=== PATIENT | male | born 1970 ===

== ENCOUNTER 2017-04-11 18:40 | Emergency (ER) | payer MEDICAID ==
[2017-04-11 19:00] VITALS: BMI 28.2
[2017-04-11 19:08] VITALS: BP 134/88; TEMP 98.2
--- NOTE | 2017-04-11 20:16 | C.PDOC ---
History Of Present Illness 46 y/o male presents to ED who reports he found tick attached to his abdomen noticed at 5:45 PM today. Patient notes he [place]ed areas [place], cutting trees. Patient states this is his second tick bite, first one sustained last year, when he felt some symptoms of Lyme disease including fatigue and body aches. Patient reports he was treated with abx after that time, unsure which. He is currently asymptomatic, though he noticed some irritation to site of tick bite. Otherwise, denies fever, chills, nausea, vomiting, or other complaints. Chief Complaint (Nursing): Bite History Per: Patient History/Exam Limitations: no limitations Onset/Duration Of Symptoms: Hrs Location Of Injury: Anterior: Abdomen Quality Of Symptoms: denies: Itching, Swollen, Draining Recent travel outside of the [place]: No Past Medical History Reviewed: Historical Data, Nursing Documentation, Vital Signs Vital Signs: Last Vital Signs Temp 98.2 F 04/11/17 19:01 Pulse 72 04/11/17 21:07 Resp 17 04/11/17 21:07 BP 134/88 04/11/17 19:01 Pulse Ox 99 04/11/17 21:07 - Medical History PMH: No Chronic Diseases Family History: States: Unknown Family Hx - Social History Hx Alcohol Use: Yes Hx Substance Use: No - Immunization History Hx Tetanus Toxoid Vaccination: No Hx Influenza Vaccination: No (2016) Hx Pneumococcal Vaccination: No Review Of Systems Except As Marked, All Systems Reviewed And Found Negative. Constitutional: Negative for: Fever, Chills Respiratory: Negative for: Cough, Shortness of Breath Gastrointestinal: Negative for: Abdominal Pain Skin: Negative for: Rash, Lesions Physical Exam - Physical Exam Appears: Non-toxic, No Acute Distress Skin: Warm, Dry Head: Atraumatic, Normacephalic Oral Mucosa: Moist Chest: Symmetrical Cardiovascular: Rhythm Regular Respiratory: Normal Breath Sounds, No Rales, No Rhonchi, No Wheezing Gastrointestinal/Abdominal: Soft, No Tenderness, No Guarding, No Rebound, Other (tick lodged onto skin of abdomen, no surrounding redness or erythema, no warmth ) Back: Normal Inspection Extremity: Normal ROM, Capillary Refill (< 2 sec. ) Neurological/Psych: Oriented x3 ED Course And Treatment O2 Sat by Pulse Oximetry: 97 (RA) Pulse Ox Interpretation: Normal Progress Note: Tick removed by resident Dr. Cheri Quinteros Disposition Counseled Patient/Family Regarding: Studies Performed, Diagnosis, Need For Followup - Disposition Disposition: HOME/ ROUTINE Disposition Time: 21:00 Condition: GOOD Instructions: Tick Bite (ED) - Clinical Impression Clinical Impression: Tick bite - PA / [employer] / Resident Statement MD/DO has reviewed & agrees with the documentation as recorded. - Scribe Statement The provider has reviewed the documentation as recorded by the Scribe Andrés Martinez All medical record entries made by the Suleman were at my direction and personally dictated by me. I have reviewed the chart and agree that the record accurately reflects my personal performance of the history, physical exam, medical decision making, and the department course for this patient. I have also personally directed, reviewed, and agree with the discharge instructions and disposition.
[2017-04-11 21:07] VITALS: PULSE 72; RESP 17
[2017-04-11 23:14] VITALS: O2SAT 97
== END 2017-04-11 21:08 | disposition home or self-care (01) ==
LOC: C.ER 18:40
DX: S30.861A Insect bite (nonvenomous) of abdominal wall, initial encounter (principal); W57.XXXA Bitten or stung by nonvenomous insect and other nonvenomous arthropods, initial encounter